=== PATIENT | female | born 1995 | race Caucasian/White ===

== ENCOUNTER 2021-07-13 16:03 | Emergency (ER) | payer BC, SELFPAY ==
[2021-07-13 16:06] VITALS: BP 125/86; PULSE 96; RESP 18; TEMP 36.1; O2SAT 100
--- NOTE | 2021-07-13 16:15 | ED.GENADULT ---
HPI - General Adult General Chief complaint: Nausea/Vomiting/Diarrhea Stated complaint: 8wks , N/V Time Seen by Provider: 07/13/21 16:10 Source: RN notes reviewed History of Present Illness HPI narrative: Patient presents emergency department from home for nausea vomiting. Patient states symptoms began last night and had numerous episodes of nausea vomiting. Patient states she has no abdominal pain with the symptoms she denies any diarrhea she states she is approximately 8 weeks is followed at [facility] states she has had a ultrasound that shows a live intrauterine she denies any vaginal bleeding or discharge states he had similar episodes approximately a week ago patient is G1, P0 Related Data Allergies Allergy/AdvReac Type Severity Reaction Status Date / Time Sulfa (Sulfonamide Allergy Hives Verified 07/13/21 16:08 Antibiotics) Review of Systems Review of Systems: Gen.: Denies fevers or chills ENT: Denies congestion Respiratory: Denies shortness of breath or cough CV: Denies chest pain or palpitations GI: See HPI reports Musculoskeletal: Denies back pain or muscle pain Neuro: Denies numbness, tingling, weakness or focal weakness Skin: Denies rash Except as documented, all other systems reviewed and negative [facility] Past Medical History Medical History (Updated 07/13/21 @ 18:31 by Hawk Gray DO) Patient denies significant medical history Social History Social History (Updated 07/13/21 @ 16:20 by Hawk Gray DO) Smoking status: Never smoker Exam Narrative: APPEARANCE: No acute distress, nontoxic, resting in bed EYES: EOMI HEENT: Normocephalic, atraumatic, OMM RESPIRATORY: No respiratory distress Clear to auscultation bilaterally with no rhonchi wheezing or rales. CARDIOVASCULAR: Regular rate and rhythm without murmurs rubs or gallops. ABDOMINAL: Soft, nontender, nondistended, no rebound or guarding MUSCULOSKELETAl: Moves all extremities. No clubbing, cyanosis or edema. NEURO: Awake and alert. Following commands, speech normal, no focal deficits SKIN:: Warm, dry. No rashes lesions or abrasions PSYCHIATRIC: Normal affect/mood, Course Course Emergency Course: Patient feeling much better able to eat eat and drink in ED with no emesis Dr. Bryan agrees with plan for discharge with Zofran and follow-up as an outpatient Discussed with patient results of workup and diagnosis. Discussed need for follow-up with primary care, proper use of medication, and reasons to return to the emergency department. Patient understands and agrees to current treatment plan Vital Signs Vital signs: Vital Signs Temperature 96.9 F L 07/13/21 16:06 Pulse Rate 96 07/13/21 16:06 Respiratory Rate 18 07/13/21 16:06 Blood Pressure 125/86 07/13/21 16:06 Pulse Oximetry 100 07/13/21 16:06 Temperature 96.9 F L 07/13/21 16:06 Pulse Rate 96 07/13/21 16:06 Respiratory Rate 18 07/13/21 16:06 Blood Pressure 125/86 07/13/21 16:06 Pulse Oximetry 100 07/13/21 16:06 Medical Decision Making Vital Signs Vital Signs: Vital Signs Temperature 96.9 F L 07/13/21 16:06 Pulse Rate 96 07/13/21 16:06 Respiratory Rate 18 07/13/21 16:06 Blood Pressure 125/86 07/13/21 16:06 Pulse Oximetry 100 07/13/21 16:06 Temperature 96.9 F L 07/13/21 16:06 Pulse Rate 96 07/13/21 16:06 Respiratory Rate 18 07/13/21 16:06 Blood Pressure 125/86 07/13/21 16:06 Pulse Oximetry 100 07/13/21 16:06 Lab Data Result diagrams: 07/13/21 16:22 07/13/21 16:22 Labs: Lab Results 07/13/21 07/13/21 07/13/21 Range/Units 16:22 16:22 17:14 WBC 7.1 (4.5-10.0) K/mm3 RBC 4.15 L (4.2-5.4) M/mm3 Hgb 12.9 (12.0-15.0) g/dL Hct 38.5 (37.0-47.0) % MCV 92.8 (80-100) fl MCH 31.1 (26-34) pg MCHC 33.5 (32-36) g/dl RDW 11.3 L (11.5-14.5) % Plt Count 233 (150-375) k/mm3 MPV 9.5
[2021-07-13 16:27] LABS: Basophils Percent Auto 0.4 % (0.2-1.2); Eosinophils Absolute Auto 0.1 K/mm3 (0-0.3); Hematocrit 38.5 % (37.0-47.0); Hemoglobin 12.9 g/dL (12.0-15.0); Immature Granulocyte Absolute 0.02 K/mm3 (0.00-0.031); Immature Granulocyte Percent A 0.3 % (0-0.5); Lymphocytes Absolute Auto 2.03 K/mm3 (0.9-3.2); Lymphocytes Percent Auto 28.8 % (18.3-44.2); Mean Corpuscular HGB Conc 33.5 g/dl (32-36); Mean Corpuscular Hemoglobin 31.1 pg (26-34); Mean Corpuscular Volume 92.8 fl (80-100); Mean Platelet Volume 9.5 fl (7.4-10.4); Monocytes Absolute Auto 0.7 K/mm3 (0.1-0.6); Monocytes Percent Auto 9.4 % (2.6-8.5); Neutrophils Absolute Auto 4.2 K/mm3 (1.3-6.7); Neutrophils Percent Auto 60.1 % (45.5-73.1); Platelet Count Result 233 k/mm3 (150-375); Red Blood Count 4.15 M/mm3 (4.2-5.4); Red Cell Distribution Width 11.3 % (11.5-14.5); White Blood Count 7.1 K/mm3 (4.5-10.0)
[2021-07-13] MEDS: SODIUM CHLORIDE 0.9% IV 1,000 ML 999 ML IV CONT ×2 (16:34→17:46)
[2021-07-13] MEDS: ONDANSETRON INJ 4 MG/2 ML VIAL IV PUSH (16:34)
[2021-07-13 16:44] LABS: Alanine Aminotransferase 24 U/L (4-35); Albumin Level 4.3 g/dL (3.5-5.1); Alkaline Phosphatase 37 U/L (38-126); Anion Gap 7 mmol/L (8-16); Aspartate Amino Transferase 30 U/L (14-36); Bilirubin,Total 0.5 mg/dL (0.2-1.3); Blood Urea Nitrogen 8 mg/dL (7-17); Calcium 8.9 mg/dL (8.4-10.2); Carbon Dioxide 23 mmol/L (22-30); Chloride 104 mmol/L (98-107); Estimated CRCL calculation 147 ml/min; Estimated Glomerular Filt Rate > 60; Glucose 93 mg/dL (65-110); Potassium 3.5 mmol/L (3.4-5.0); Sodium 134 mmol/L (137-145)
--- NOTE | 2021-07-13 16:49 | PC.NURSE ---
Patient states she is unable to urinate at this time.
[2021-07-13 17:19] LABS: Appearance Urine Clear (Clear); Bilirubin Urine Negative (Negative); Color Urine Yellow (Yellow); Glucose Urine UA Negative (Negative); Ketones Urine Negative (Negative); Leukocyte Esterase Ur Negative LEU/UL (Negative); Nitrate Urine Negative (Negative); Protein Urine Negative (Negative); Urobilinogen Urine 0.2 mg/dL (<2.0)
[2021-07-13 17:36] LABS: Bacteria Urine 2+ /hpf; RBC Urine 0-2 /hpf (0-2); Squamous Epithelial Cell Urine Rare /hpf (Few); WBC Urine 0-3 /hpf
[2021-07-13 17:44] LABS: Add Urine Microscopic? YES; Blood Urine Trace-Intact (Negative)
--- NOTE | 2021-07-13 18:26 | PC.NURSE ---
Patient PO challenged. Denies nausea.
[2021-07-13 18:49] VITALS: BP 129/77; PULSE 87; RESP 14; O2SAT 97
== END 2021-07-13 18:50 | disposition home or self-care (01) ==
PROVIDERS: Emergency Provider Emergency Medicine; PCP Family Medicine
DX: O21.9 Vomiting of pregnancy, unspecified (principal); Z3A.08 8 weeks gestation of pregnancy
CPT/HCPCS: 36415; 80053; 81001; 84702; 85025; 87804; 96361; 96374; 99284; J2405; J7030

== ENCOUNTER 2022-02-11 12:37 | Observation (INO) | payer BC, SELFPAY ==
--- NOTE | 2022-02-12 16:15 | PM.OBTRLD ---
OB - Triage/Final Diagnosis Visit Information Date of evaluation: 02/11/22 Reason for evaluation: threatened labor Comments/Additional reasons for admission: I have assessed the risk for this patient, Darlene Benjamin, and determined that she would benefit from observation care.
--- NOTE | 2022-02-14 07:06 | PM.OBTRLD ---
OB - Triage/Final Diagnosis Visit Information Date of evaluation: 02/12/22 Reason for evaluation: threatened labor Comments/Additional reasons for admission: I have assessed the risk for this patient, Darlene Benjamin, and determined that she would benefit from observation care.
== END 2022-02-11 13:24 | disposition home or self-care (01) ==
LOC: ANHLDR 12:41
PROVIDERS: Admitting Provider Obstetrics & Gynecology; PCP Family Medicine; Visit Provider Obstetrics & Gynecology
DX: O47.1 False labor at or after 37 completed weeks of gestation (principal); Z3A.38 38 weeks gestation of pregnancy
CPT/HCPCS: 84112; G0378; G0379

== ENCOUNTER 2022-02-12 06:36 | Inpatient (IN) | payer BC, SELFPAY ==
[2022-02-12] VITALS (68 sets, daily range): BP systolic 85–134; BP diastolic 38–87; PULSE 70–179; TEMP 36.6–37.1; O2SAT 98–100
--- NOTE | 2022-02-12 07:26 | WPDOBADMIT ---
Obstetrics - Admit Note Admission Note: record reviewed. No pertinent additions to the history and/or any subsequent changes in the physical findings that are not consistent with the expected course of the were found. Elective IOL at 39 weeks, SVE 2/-2, AROM small amount of clear odorless fluid, anticipate vaginal delivery Additions to the history and/or subsequent changes in the physical findings follow. None.
--- NOTE | 2022-02-12 07:28 | LDADM ---
This patient, Darlene Benjamin, was admitted to Labor/Delivery/Recovery 104 on 02/12/22 at 06:36. Plans for labor, pain management and were discussed with patient. Patient/family oriented to hospital policies and general routines including ID bracelet, bed and alarms, visiting hours, pain management, procedures, bathroom and other care routines, personal items, smoking policy, room service/diet and guest tray routines, security routines, and visiting hours. Patient/Family are encouraged to report perceived risks to care and to ask questions if they do not understand what they are told or what they should do. See OBIX for further documentation.
[2022-02-12 07:34] LABS: Basophils Absolute Auto 0.1 K/mm3 (0.0-0.1); Eosinophils Absolute Auto 0.1 K/mm3 (0-0.3); Eosinophils Percent Auto 1.3 % (0-4.4); Hematocrit 31.7 % (37.0-47.0); Hemoglobin 10.5 g/dL (12.0-15.0); Immature Granulocyte Absolute 0.57 K/mm3 (0.00-0.031); Immature Granulocyte Percent A 5.3 % (0-0.5); Lymphocytes Absolute Auto 2.72 K/mm3 (0.9-3.2); Lymphocytes Percent Auto 25.2 % (18.3-44.2); Mean Corpuscular HGB Conc 33.1 g/dl (32-36); Mean Corpuscular Hemoglobin 29.7 pg (26-34); Mean Corpuscular Volume 89.5 fl (80-100); Mean Platelet Volume 10.1 fl (7.4-10.4); Monocytes Absolute Auto 1.1 K/mm3 (0.1-0.6); Monocytes Percent Auto 9.9 % (2.6-8.5); Neutrophils Absolute Auto 6.2 K/mm3 (1.3-6.7); Neutrophils Percent Auto 57.3 % (45.5-73.1); Platelet Count Result 207 k/mm3 (150-375); Red Blood Count 3.54 M/mm3 (4.2-5.4); Red Cell Distribution Width 13.5 % (11.5-14.5); White Blood Count 10.8 K/mm3 (4.5-10.0)
[2022-02-12] MEDS: LACTATED RINGERS 1,000 ML 125 ML IV CONT ×2 (08:26→13:27)
[2022-02-12] MEDS: OXYTOCIN 30 UNITS/NS 500 ML 30 UNITS/500 ML BAG 6 UNITS IV CONT (08:27)
[2022-02-12] MEDS: ONDANSETRON INJ 4 MG/2 ML VIAL IV PUSH (12:38)
[2022-02-12] MEDS: fentaNYL CITRATE INJ (*CRX) 100 MCG/2 ML VIAL 50 MCG IV PUSH (12:45)
--- NOTE | 2022-02-12 13:38 | WPDANESEPP ---
Anes - Eval Pre Procedure Procedure: Labor epidural Date/Time: 02/12/22 13:38 Surgeon: Randi Preop Diagnosis: Pain during labor Pre Op Diagnosis: Induction of Labor Patient Data Age: 26 Gender: F Height: 1.7 m Weight: 87 kg Last Vital Signs Temp 36.6 C 02/12/22 11:00 Pulse 88 02/12/22 13:31 BP 128/79 02/12/22 13:31 O2 Del Method Room Air 02/12/22 07:27 Allergies Allergy/AdvReac Type Severity Reaction Status Date / Time Sulfa (Sulfonamide Allergy Hives Verified 07/13/21 16:08 Antibiotics) Home Medications Medication Instructions Recorded Confirmed Type ondansetron 4 mg disintegrating 4 mg PO Q6H PRN nausea and 07/13/21 02/12/22 Rx tablet vomiting #10 tabs fluoxetine 20 mg capsule (Prozac) 20 mg PO DAILY 01/23/22 01/23/22 History levothyroxine 112 mcg tablet 112 mcg PO DAILY 01/23/22 01/23/22 History (Synthroid) prenat.vits,gaudencio,[id number] 1 tablet PO DAILY 01/23/22 02/12/22 History Laboratory Tests 02/12/22 02/12/22 02/12/22 06:56 06:56 06:56 WBC 10.8 K/mm3 H K/mm3 (4.5-10.0) RBC 3.54 M/mm3 L M/mm3 (4.2-5.4) Hgb 10.5 g/dL L g/dL (12.0-15.0) Hct 31.7 % L % (37.0-47.0) MCV 89.5 fl fl (80-100) MCH 29.7 pg pg (26-34) MCHC 33.1 g/dl g/dl (32-36) RDW 13.5 % % (11.5-14.5) Plt Count 207 k/mm3 k/mm3 (150-375) MPV 10.1 fl fl (7.4-10.4) Immature Gran % (Auto) 5.3 % H % (0-0.5) Neut % (Auto) 57.3 % % (45.5-73.1) Lymph % (Auto) 25.2 % % (18.3-44.2) [place] % (Auto) 9.9 % H % (2.6-8.5) Eos % (Auto) 1.3 % % (0-4.4) Baso % (Auto) 1.0 % % (0.2-1.2) Lymph # (Auto) 2.72 K/mm3 K/mm3 (0.9-3.2) [place] # (Auto) 1.1 K/mm3 H K/mm3 (0.1-0.6) Eos # (Auto) 0.1 K/mm3 K/mm3 (0-0.3) Baso # (Auto) 0.1 K/mm3 K/mm3 (0.0-0.1) Abs Immat Gran (auto) 0.57 K/mm3 H K/mm3 (0.00-0.031) Absolute Neuts (auto) 6.2 K/mm3 K/mm3 (1.3-6.7) Absolute Nucleated RBC 0.0 K/mm3 K/mm3 (0.0-0.012) Nucleated RBC % 0.0 % % (0.0-0.2) RPR Pending Blood Type O Positive Antibody Screen Negative Patient hx anesthesia problems: none Family hx anesthesia problems: none Results Review: All pre-operative results and documents have been reviewed as part of the pre-operative evaluation. [facility], [facility] Past Medical History Medical History Patient denies significant medical history Family History Family History Mother Hypertension Social History Social History Smoking status: Never smoker Substance use: never Lack of Transportation: No Lack of Food: Never True Current Housing: I Have Housing Concerned About Future Housing: No Difficulty Paying Gas/Electric Bills: No Difficulty Paying for Meds: No Currently Unemployed: No Education: Associate Degree Difficulty w/ Childcare or Family Care: No Spiritual care concerns: No Exam Day of Procedure 02/12/22 13:38 Patient weight: overweight Neurological: alert and oriented
[2022-02-12 15:30] LABS: Rapid Plasma Reagin Non-Reactive (NonReactive)
--- NOTE | 2022-02-12 17:43 | P.PCNOB_ITS ---
OB - Delivery Note Procedure Delivery date: 02/12/22 Procedure: Events: Elective Induction of Labor Induction method: Per Pitocin Protocol Delivery augmentation: Rupture of Membranes Delivery monitor: External FHT and External Uterine Route of delivery: Laceration Description: Perineal - 1st Degree Delivery repair: vicryl Specimen: No Quantitative Blood Loss (ml): 50 Anesthesia type: Epidural Disposition: Floor Narrative: mom and baby stable and doing skin to skin [place] Baby Date of : 02/12/22 Time of : 17:19 Weeks of gestation at delivery: 39 Infant gender: Female Weight (pounds): 8 Weight (ounces): 1 presentation: vertex position: Left Occiput Anterior Placenta delivery description: Spontaneous Cord Vessel Description: 3 Vessels, Clamped/Cut and Delayed Cord Clamping score one minute: 9 score five minutes: 9
[2022-02-12] MEDS: miSOPROStol 200 MCG TABLET 800 MCG (17:48)
[2022-02-12] MEDS: WITCH HAZEL 40 PADS 1 PAD TOPICAL (19:17)
[2022-02-12] MEDS: BENZOCAINE 20% AER SPR (*SP) 56 GM CAN 1 SPRAY TOPICAL (19:17)
[2022-02-12] MEDS: IBUPROFEN 600 MG TABLET PO (21:50)
[2022-02-13] VITALS (8 sets, daily range): BP systolic 115–126; BP diastolic 61–77; PULSE 77–90; RESP 16; TEMP 36.8–36.9; O2SAT 99–100
[2022-02-13 06:10] LABS: Hematocrit 32.5 % (37.0-47.0); Hemoglobin 10.7 g/dL (12.0-15.0)
[2022-02-13] MEDS: IBUPROFEN 600 MG TABLET PO ×2 (07:05→15:25)
--- NOTE | 2022-02-13 08:19 | PM.OBPNVD ---
OB - PN: Subj Subjective Date/time seen: 02/13/22 08:19 Patient comments: no complaints, pain well controlled, incisional pain, tolerating diet and flatus present OB - PN: Obj Data Labs CBC & Chem 7: 02/13/22 06:03 Labs: Laboratory Results - last 24 hr 02/12/22 02/12/22 02/13/22 06:56 06:56 06:03 Hgb 10.7 L Hct 32.5 L RPR Non-reactive Blood Type O Positive Antibody Screen Negative OB - PN A/P Plan day: 1 Plan: routine care Comments: No problems, routine care Time Spent With Patient Time: Total time spent is greater than 50% in coordination of care (as documented) at patient's floor/unit and/or counseling patient: Exam Const: General: comfortable, no acute distress and alert Resp: Effort & Inspection: normal respiratory effort Auscultation: no crackles, no rales and no rhonchi Cardio: Rate: regular rate Heart sounds: no click, no murmurs and no rubs GI: Inspection: non-distended GI Palp: No Tenderness to palpation present (GI) Auscultation: normal bowel sounds Other: Incision - CDI Extrem: General: normal to inspection, no pedal edema and no calf tenderness
--- NOTE | 2022-02-13 08:20 | PM.OBDSVD ---
DS: Admitting Diagnosis Discharge Date 02/13/22 Admitting Diagnosis term OB - DS: Summary OB Procedures : None OB Procedures Intrapartum: Spontaneous Vag Delivery OB Procedures: : None Time Spent with Patient Time attestation: Total time spent providing and/or coordinating discharge services: DS: Data Data Completed and Pending Labs on day of discharge: Labs from last 24 hours 02/13/22 02/12/22 02/12/22 06:03 06:56 06:56 Hgb 10.7 L Hct 32.5 L RPR Non-reactive Blood Type O Positive Antibody Screen Negative Discharge Plan Discharge Discharging Clinician: Gume Bryan Patient Disposition: Home, Self-Care Activity: pelvic rest Diet: regular Patient Instructions: Antibiotic Form Stand Alone Forms: General Discharge Information Follow-up/Referrals: Gume Bryan MD [Physician] - Discharge Medications: Continued fluoxetine [Prozac] 20 mg Capsule 20 mg PO DAILY levothyroxine [Synthroid] 112 mcg Tablet 112 mcg PO DAILY Rx Instructions: Pt alternates daily 112 mcg and 125 mcg prenat.vits,gaudencio,[id number] Tablet 1 tablet PO DAILY ondansetron 4 mg tablet,disintegrating 4 mg PO Q6H PRN (Reason: nausea and vomiting) Qty: 10 0RF Date of admission: 02/12/22 06:36 Primary Care Provider: [facility] Admitting Provider: Gume Bryan Attending physician on admission: Gume Bryan Condition: Stable
--- NOTE | 2022-02-13 11:23 | OBPPTRN ---
Patient transferred to post room #290 via wheelchair. Support person present. Oriented to unit, room, information board, rooming in, admission packet and security measures. Patient verbalizes understanding.
--- NOTE | 2022-02-13 11:30 | PC.NURSE ---
transferred pt to unit with baby. report given to Rachael JEFF
[2022-02-13] MEDS: MULTIVIT/MIN/PREN/FOL AC/IRON TABLET 1 TAB PO (11:58)
[2022-02-13] MEDS: ACETAMINOPHEN 325 MG TABLET 650 MG PO (11:58)
[2022-02-13] MEDS: DOCUSATE SODIUM 100 MG CAPSULE PO (11:58)
--- NOTE | 2022-02-13 17:35 | PC.NURSE ---
Patient viewed the discharge video Mother & Baby Care, The First Two Weeks . Patient was given the opportunity and encouraged to ask questions. Patient verbalized understanding of information shared and has been given the mother/baby guide for home reference.
[2022-02-16 10:56] VITALS: BP 132/84; PULSE 77; RESP 20; TEMP 36.9; O2SAT 100
== END 2022-02-13 18:14 | disposition home or self-care (01) | DRG 807 ==
LOC: ANHLDR 07:08 → ANHOBPP 22:46 → ANHOB2 02-13 11:39
PROVIDERS: Advanced Practice Midwife; Admitting Provider Obstetrics & Gynecology; PCP Family Medicine; Visit Provider Obstetrics & Gynecology
DX: O70.0 First degree perineal laceration during delivery (principal); Z37.0 Single live birth; Z3A.39 39 weeks gestation of pregnancy
CPT/HCPCS: 36415; 85014; 85018; 85025; 86592; 86850; 86900; 86901; A9270; J2405; J2590; J2795; J3010; J7120